=== PATIENT | female | born 1965 | race Caucasian/White ===

== ENCOUNTER 2019-06-13 23:06 | Emergency (ER) | payer OTHER, MEDICAID ==
[~2019-06-13] VITALS: Ht 160 cm; Wt 76.7 kg
[2019-06-13 23:06] VITALS: BP 143/85
--- NOTE | 2019-06-14 02:00 | NUR ---
PT CAME IN TO ER WITH C/O RIGHT KNEE AND BACK PAIN P/S FALL. PT STATED THAT SHE WAS ON THE COUCH, STOOD UP AND TRIPPED AND FELL. PT IS ALERT AND ABLE TO ANSWER QUESTIONS APPROPIRATELY. PAIN LEVEL AT THIS TIME IS 7/10. NO REDNESS AND MINIMAL SWELLING NOTED. ERMD MADE AWARE OF STATUS, SAFETY MEASURES IN PLACE.
[2019-06-14] MEDS ORDERED: KETOROLAC 60 MG/2 ML VIAL IM ONE (02:10)
[2019-06-14 02:39] VITALS: BP 138/80
== END 2019-06-14 02:40 | disposition home or self-care (01) ==
LOC: MED 23:06
DX: S76.911A Strain of unspecified muscles, fascia and tendons at thigh level, right thigh, initial encounter (principal); J45.909 Unspecified asthma, uncomplicated; Z88.0 Allergy status to penicillin; Z88.5 Allergy status to narcotic agent; Z88.1 Allergy status to other antibiotic agents; W18.30XA Fall on same level, unspecified, initial encounter; Y93.89 Activity, other specified; Y92.89 Other specified places as the place of occurrence of the external cause; Y99.8 Other external cause status
CPT/HCPCS: 73562; 96372; 99283; J1885